=== PATIENT | female | born 1985 | race Caucasian/White ===

== ENCOUNTER 2019-10-14 06:05 | Emergency (ER) | payer MEDICAID, SELFPAY ==
[2019-10-14 06:12] VITALS: BP 155/103; PULSE 108; RESP 18; TEMP 36.8; O2SAT 98; BMI 18.3
--- NOTE | 2019-10-14 06:22 | W.ED.ANXIETY ---
HPI - Anxiety General: Chief Complaint: Anxiety Stated Complaint: WANT TO GO TO NPU Time Seen by Provider: 10/14/19 06:22 History of Present Illness: HPI narrative: 34-year-old female presents emergency room with complaint of anxiety. She has some relationship issues causing her to have severe anxiety. She denies suicidal homicidal ideation. She reports her and her boyfriend broke up that is what precipitated this. She was admitted for suicidal ideation in April 2019. She denies any suicidal thoughts at this time. She is very distraught because her boyfriend kicked her out of the house and she says she does not really have anywhere to go. Associated symptoms: Deny chest pain, chills, fever(s), malaise, nausea or vomiting Review of Systems Const: Denies: fever, chills, body aches, change in appetite, fatigue or malaise ENMT: Denies: throat pain, ear pain, nasal discharge or nasal congestion Card: Denies: chest pain, edema, shortness of breath on exertion or shortness of breath when lying down Resp: Denies: shortness of breath, productive cough or non-productive cough GI: Denies: abdominal pain, nausea, vomiting, vomiting blood, coffee grounds in vomit, diarrhea, constipation, bloating, blood in stool or black tarry stool : Denies: flank pain, difficulty urinating, painful urination, urinary frequency or urinary urgency Skin/Breast: Denies: rash or itching PFS ED PFSH: Social History Smoking and tobacco status: current every day smoker Physical Exam Const: COMMON NORMALS: no apparent distress GENERAL APPEARANCE: cooperative and comfortable ORIENTATION/CONSCIOUSNESS: Yes awake, Yes oriented to person, Yes oriented to place and Yes oriented to time HENMT: COMMON NORMALS: normocephalic, head/scalp atraumatic, hearing grossly normal bilaterally and external ears normal HEAD & SCALP: normocephalic and atraumatic EXTERNAL EAR: Yes external ears normal Eye: COMMON NORMALS: PERRL, EOMs intact bilaterally, conjunctivae normal and no scleral icterus CONJUNCTIVA: Yes conjunctivae normal PUPIL: Yes PERRL Neck/C-Spine: COMMON NORMALS: full ROM, no lymphadenopathy, supple and no JVD Lymph: LYMPHATIC: no lymphadenopathy noted and no lymphedema noted Resp: COMMON NORMALS: normal respiratory effort, no retractions, no use of accessory muscles and clear to auscultation bilaterally AUSCULTATION: clear to auscultation bilaterally Cardio: COMMON NORMALS: no JVD, regular rate, regular rhythm and no murmurs RATE: regular rate RHYTHM: regular rhythm GI: COMMON NORMALS: soft to palpation and no hepatosplenomegaly AUSCULTATION: Yes normoactive bowel sounds PALPATION: Yes soft, No tender, No guarding and Yes no hepatosplenomegaly Extremity: COMMON NORMALS: normal to inspection, normal capillary refill, no clubbing, cyanosis or edema, no calf tenderness and no pedal edema Neuro: SENSORIUM/ORIENTATION: Yes oriented to person, Yes oriented to place and Yes oriented to time Skin: COMMON NORMALS: no rashes or lesions noted GENERAL SKIN EXAM: no rashes or lesions noted Course Vital Signs: Vital signs: Vital Signs Temperature 98.3 F 10/14/19 06:12 Pulse Rate 108 H 10/14/19 09:55 Respiratory Rate 16 10/14/19 09:55 Blood Pressure 148/104 10/14/19 09:55 Pulse Oximetry 98 10/14/19 09:55 MDM - Anxiety MDM Narrative: Medical decision making narrative: Patient repeatedly denies any homicidal or suicidal ideation. We gave her's a dose of Ativan here in the emergency room that did help some where to go ahead and discharge her home early find no reason at this point that she would need to be admitted to the NPU. She does need assistance with A place to stay evidently her boyfriend is kicked her out Case management made some arrangements with an outside agency to help her get a ID so she could stay at a local [facility]. Discharge Plan Discharge Patient Disposition: Home, Self-Care Clinical Impression: Acute anxiety Condition: Stable Prescriptions: New Ativan 0.5 mg tablet 0.5 mg PO Q8H PRN (Reason: anxiety) Qty: 10 RF: 0 Discharge Orders: Discharge Order (Routine); Ordered 10/14/19 Ordered By: Brock Rubin Referrals[facility], [Staff Physician] - Discharge Diet: Usual diet Discharge Activity: Resume usual activity Discharge Date/Time: 10/14/19 09:55 Coding Level of Care Code ED Supermarket Manager for Chg Fwd Exam Comprehensive
[2019-10-14] MEDS: LORazepam 1 mg Tablet PO (06:40)
[2019-10-14] MEDS: acetaminophen 325 mg Tablet 650 MG PO (06:40)
[2019-10-14 07:03] VITALS: RESP 17
--- NOTE | 2019-10-14 07:35 | PC.NURSE ---
Pending D/C for case management consult.
[2019-10-14 08:00] VITALS: RESP 16
[2019-10-14 09:00] VITALS: RESP 16
[2019-10-14 09:55] VITALS: BP 148/104; PULSE 108; RESP 16; O2SAT 98
--- NOTE | 2019-10-14 14:46 | DCPLANNER ---
manager inventory control was asked to help patient find somewhere to go either [facility] or [facility]. manager inventory control called [facility], and patient spoke with Rylie from [facility]. Patient was not able to go to [facility], patient was given the name and a phone number to someone that would be able to help patient. manager inventory control was told by patient that when patient called the phone number was told that they would be able to help patient get an ID and would pick patient up at the ER when she was discharged. manager inventory control informed ED physician and patients nurse of this.
== END 2019-10-14 09:55 | disposition home or self-care (01) ==
PROVIDERS: Emergency Provider Family Medicine; Family Provider Family Medicine
DX: F41.9 Anxiety disorder, unspecified (principal); F17.210 Nicotine dependence, cigarettes, uncomplicated
CPT/HCPCS: 12345; 99281; 99283

== ENCOUNTER 2020-05-30 17:13 | Emergency (ER) | payer MEDICAID, SELFPAY ==
[2020-05-30 17:27] VITALS: BP 135/95; PULSE 114; RESP 18; TEMP 37.1; O2SAT 99; BMI 17.6
[2020-05-30 17:29] VITALS: BP 156/111; PULSE 115; RESP 20; O2SAT 98
--- NOTE | 2020-05-30 17:54 | W.ED.GENADLT ---
HPI - General Adult General: Chief complaint: General Medical Stated complaint: FEVER, SORE THROAT, H/A, DIFF SWALLOWING Time Seen by Provider: 05/30/20 17:46 History of Present Illness: HPI narrative: Patient woke up with fever body aches this morning and those have continued. She said having difficulty swallowing because her throat hurts so bad. No known Covid exposure denies any diarrhea loss of taste or smell. MD complaint: Sore throat body aches Onset (ago): hour(s) Associated symptoms: Reports no associated symptoms; Deny chest pain, dyspnea, headache(s), nausea, rash or vomiting Review of Systems Const: Denies: fever(s), chills or body aches Eyes: Denies: change in vision or blurry vision ENMT: Reports: throat pain, nasal congestion and other (Sinus pain) Card: Denies: chest pain or dyspnea on exertion Resp: Denies: dyspnea, productive cough or non-productive cough GI: Denies: abdominal pain, nausea or vomiting Musc: Reports: neck pain, back pain and joint pain; Denies: extremity pain Skin/Breast: Denies: rash Neuro: Denies: headache(s) Psych: Denies: anxiety or depression Ulysses/Lymph: Denies: easy bruising PFSH ED PFSH: Social History Smoking and tobacco status: current every day smoker Female Reproductive History: Date of last menstrual period: 05/16/20 Physical Exam Const: COMMON NORMALS: no acute distress, average body habitus and patient oriented x3 HENMT: COMMON NORMALS: normocephalic HEAD & SCALP: normal to inspection and normocephalic FACE & SINUS: normal facial exam THROAT: posterior oropharynx abnormal erythema Eye: COMMON NORMALS: conjunctivae normal GENERAL EYE: appearance normal, both eyes and all related structures CONJUNCTIVA: Yes conjunctivae normal Neck/C-Spine: COMMON NORMALS: no JVD Chest: COMMONS NORMALS: normal inspection of the chest Resp: COMMON NORMALS: normal respiratory effort and clear to auscultation bilaterally AUSCULTATION: clear to auscultation bilaterally Cardio: COMMON NORMALS: no JVD and regular rhythm RATE: tachycardic RHYTHM: regular rhythm GI: COMMON NORMALS: Normal to inspection, nondistended, normoactive bowel sounds present Extremity: COMMON NORMALS: normal to inspection and full ROM Neuro: COMMON NORMALS: patient oriented x3 Course Vital Signs: Vital signs: Vital Signs Temperature 98.7 F 05/30/20 17:27 Pulse Rate 114 H 05/30/20 17:27 Respiratory Rate 18 05/30/20 17:27 Blood Pressure 135/95 05/30/20 17:27 Pulse Oximetry 99 05/30/20 17:27 Discharge Plan Discharge Prescriptions: No Action Ativan 0.5 mg tablet 0.5 mg PO Q8H PRN (Reason: anxiety) Qty: 10 RF: 0 Coding Level of Care Code ED Clerical Order Filler for Chg Fwd Exam Comprehensive
[2020-05-30] MEDS: ibuprofen 600 mg Tablet PO (18:17)
[2020-05-30 18:22] VITALS: BP 156/111; PULSE 116; RESP 20; O2SAT 98
[2020-05-30] MEDS: dexamethasone 4 mg Tablet 10 MG PO (18:27)
[2020-05-30 18:54] LABS: Rapid Strep A Test Negative (Negative)
[2020-05-30 19:06] LABS: Influenza A by IFA Negative (Negative); Influenza B by IFA Negative (Negative); SARS Covid-2 Antigen Negative (Negative)
[2020-05-30 19:29] VITALS: BP 140/93; PULSE 96; O2SAT 100
== END 2020-05-30 19:31 | disposition home or self-care (01) ==
PROVIDERS: Emergency Provider Nurse Practitioner Family
DX: J02.9 Acute pharyngitis, unspecified (principal); F17.210 Nicotine dependence, cigarettes, uncomplicated
CPT/HCPCS: 12345; 87081; 87426; 87804; 87880; 99281; 99283; J8540

== ENCOUNTER 2020-06-19 04:28 | Inpatient (IN) | payer MEDICAID, SELFPAY ==
[2020-06-19] VITALS (7 sets, daily range): BP systolic 111–175; BP diastolic 78–109; PULSE 82–115; RESP 14–20; TEMP 36.8–37.1; O2SAT 96–98; BMI 18.3
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
[2020-06-19 05:42] LABS: Basophils # 0.1 10^3/uL (0.0-0.1); Basophils % 0.9 %; Eosinophils # 0.2 10^3/uL (0.0-0.8); Eosinophils % 1.1 %; Hemoglobin 13.2 g/dL (11.5-15.3); Lymphocytes # 1.9 10^3/uL (0.8-4.8); Lymphocytes % 12.6 %; Mean Corpuscular HGB Conc 32.2 g/dL (30.0-36.0); Mean Corpuscular Hemoglobin 29.8 pg (28.0-34.0); Mean Corpuscular Volume 92.6 fL (81-99); Mean Platelet Volume 9.5 fL (7.4-10.4); Monocytes # 0.7 10^3/uL (0.2-0.9); Monocytes % 4.4 %; Neutrophils # 12.24 10^3/uL (1.8-7.7); Neutrophils % 80.7 %; Nucleated Red Blood Cells % 0 %; Platelet Count 349 10^3/cmm (130-400); Red Blood Count 4.43 10^6/uL (4.1-5.3); Red Cell Distribution Width 12.5 % (12.1-15.1); White Blood Count 15.2 10^3/uL (4.0-10.0)
[2020-06-19] MEDS: LORazepam 2 mg Tablet PO (05:42)
[2020-06-19 05:46] LABS: HCG Qualitative Urine. Negative (Negative)
[2020-06-19 05:48] LABS: Acetaminophen < 5.0 ug/mL (10-30); Alanine Aminotransferase 25 U/L (0-33); Albumin Level 4.8 g/dL (3.5-5.2); Alcohol Level < 10 mg/dL (0-10); Alkaline Phosphatase 84 IU/L (35-105); Anion Gap 16.1 (5-19); Aspartate Amino Transferase 19 U/L (0-32); Blood Urea Nitrogen 11 mg/dL (6-20); Calcium 9.5 mg/dL (8.5-10.5); Carbon Dioxide 25 mmol/L (22-29); Chloride 101 mmol/L (98-107); Globulin 3.1 g/dL (1.3-4.6); Glomerular Filtration Rate 94.7 mL/min (90-130); Glucose 97 mg/dL (65-115); Osmolality Calculated 285 mOsm/kg (285-295); Potassium 4.1 mmol/L (3.5-5.1); Salicylate < 0.3 mg/dL (3-10); Sodium 138 mmol/L (136-145); Total Bilirubin 0.3 mg/dL (0.15-1.2); Total Protein 7.9 g/dL (6.6-8.7)
[2020-06-19 06:04] LABS: Amphetamines Screen Urine Positive (Negative); Barbiturates Screen Urine Negative (Negative); Benzodiazepines Screen Urine Negative (Negative); Cocaine Screen Urine Negative (Negative); Opiate Screen Urine Negative (Negative); PCP Screen Urine Negative (Negative); THC Screen Urine Positive (Negative)
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
--- NOTE | 2020-06-19 15:11 | PC.RESP ---
SMOKING CESSATION INFORMATION SENT TO PATIENT.
--- NOTE | 2020-06-19 21:48 | PC.NURSE ---
PM assessment Pt denies pain, denies AH/VH, Denies SI/HI. She requested to sleep. All vitals are normal, lung/heart sounds are normal. Pt denies anxiety at this time .
--- NOTE | 2020-06-19 23:00 | PC.NURSE ---
Skin assessment completed at 0620 today revealed no wounds or injuries.
[2020-06-20 06:00] VITALS: BP 114/81; PULSE 62; RESP 15; TEMP 37.3; O2SAT 98
--- NOTE | 2020-06-20 11:34 | PM.NPN ---
Subjective NPU Subjective: Interval history: Marizol presents today continuing to be quite tearful and expressing uncertainty about what possibilities exist for her to move forward without her significant other. We discussed recovery oriented treatment as well as appropriate follow-up her mental health concerns. We discussed the risk benefits and alternatives of initiating Lexapro which had reportedly been successful in the past and she understood and agreed to proceed as is documented in this note. Mental Status Exam MSE Comments: This is a underweight near cachectic white female in hospital scrubs with limited grooming and eye contact. No abnormal movements except for psychomotor agitation. Cooperative with exam and moderate to extreme distress. Speech was normal rate and volume. Mood described as depressed/I do not know what to do, affect congruent and tearful. Thought process organized. Thought content: Patient endorsed suicidal ideation but denied homicidal ideation, there were no delusions reported or noted, she denied any auditory or visual hallucinations. Attention and concentration were intact and memory appeared limited but reliable but none were formally tested. She is alert and oriented x3. Insight and judgment are impaired, impulse control is impaired. Vitals/I&O/Wt Last Vital Signs Temp 99.2 F 06/20/20 06:00 Pulse 62 06/20/20 06:00 Resp 15 06/20/20 06:00 BP 114/81 06/20/20 06:00 Pulse Ox 98 06/20/20 06:00 Weight last 48 hrs Weight 45.359 kg Data NPU : 06/19/20 05:13 06/19/20 05:13 A&P Additional A&P Information (1) Partner relational problem: (2) Methamphetamine abuse: (3) Withdrawal from methamphetamine: (4) Suicidal thoughts: (5) Cannabis abuse: This is a 35-year-old white female with a long history of addiction and mental health issues who presents with conflict with her significant other and uncertainty as to where their relationship is going to go. 1. Continue current medication. We will start Lexapro 10 mg p.o. every morning 2. Continue every 15 minute checks for safety. 3. Encourage individual, group and milieu therapy. 4. Encourage sober living treatment after discharge at the highest level of care to which she is willing to commit. Involuntary Hold Information 96 Hour Hold: 96 Hour Involuntary Admission: No Attestations NPU Medical Necessity Statement*: Inpatient hospitalization is medically necessary and the clinically appropriate intervention at this time. We will monitor medications and make changes as indicated. Likely length of stay 2 to 4 days. Coding Level of Care Code Acute Master Lay Out Specialist for Ermelinda Lopez
[2020-06-20 14:00] VITALS: BP 138/79; PULSE 120; RESP 18; TEMP 36.8
[2020-06-20] MEDS: escitalopram 10 mg Tablet PO (15:26)
[2020-06-20 20:09] VITALS: BP 114/57; PULSE 93; RESP 17; TEMP 37.1; O2SAT 98
--- NOTE | 2020-06-20 21:23 | PC.NURSE ---
PM assessment V/S are WNL, Heart/Lung Sounds are normal, Pt denies HI/SI. PT DENIES AH/VH AT THIS TIME. PT STATES THAT SHE HAS BEEN TEARFUL, ANXIOUS, AND CRYING ALL DAY. SHE HAS ISOLATED HER SELF AND STAYED IN HER ROOM ALL DAY. SHE IS LAYING IN HER BED AT THIS TIME. HER APPEARANCE IS DISHEVELED. PT STATED THAT SHE IS HOMELESS AND THAT SHE HAS BEEN USING DRUGS. PT STATES, MY LIFE IS FALLING APART. WILL CONTINUE TO MONITOR PT CONDITION
[2020-06-21 05:46] VITALS: BMI 20.1
[2020-06-21 06:00] VITALS: BP 118/78; PULSE 73; RESP 15; TEMP 37.4; O2SAT 99
[2020-06-21] MEDS: escitalopram 10 mg Tablet PO (08:42)
[2020-06-21 14:00] VITALS: BP 118/73; PULSE 95; RESP 16; TEMP 37.5; O2SAT 101
--- NOTE | 2020-06-21 18:24 | P.PN_ITS ---
Subjective NPU Subjective: Interval history: Marizol presents today reporting that she is feeling a little better. She still is quite sad as she is not been contacted by her significant other and she does not know his number to contact him. She has seemed to start considering what possibilities exist for starting an alternate situation. It continues to be tough for her to imagine because reportedly this is the only relationship she has ever known. She denies any side effects to the Lexapro reports that she is starting to eat better and is sleeping okay. Mental Status Exam MSE Comments: This is a underweight near cachectic white female in hospital scrubs with limited grooming and eye contact. No abnormal movements except for mild psychomotor retardation. Cooperative with exam in mild distress. Speech was normal rate and volume. Mood described as a little bit better, affect congruent and less tearful. Thought process organized. Thought content: Patient denied current suicidal or homicidal ideation, there were no delusions reported or noted, she denied any auditory or visual hallucinations. Attention and concentration were intact and memory appeared limited but reliable but none were formally tested. She is alert and oriented x3. Insight and judgment are limited, but improving, impulse control is impaired. Vitals/I&O/Wt Last Vital Signs Temp 98.3 F 06/21/20 19:46 Pulse 85 06/21/20 19:46 Resp 18 06/21/20 19:46 BP 112/75 06/21/20 19:46 Pulse Ox 98 06/21/20 19:46 Weight last 48 hrs Weight 49.895 kg Data NPU : 06/19/20 05:13 06/19/20 05:13 A&P Additional A&P Information (1) Partner relational problem: (2) Methamphetamine abuse: (3) Withdrawal from methamphetamine: (4) Suicidal thoughts: (5) Cannabis abuse: This is a 35-year-old white female with a long history of addiction and mental health issues who presents with conflict with her significant other and uncertainty as to where their relationship is going to go. 1. Continue current medication. 2. Continue every 15 minute checks for safety. 3. Encourage individual, group and milieu therapy. 4. Encourage sober living treatment after discharge at the highest level of care to which she is willing to commit. Involuntary Hold Information 96 Hour Hold: 96 Hour Involuntary Admission: No Attestations NPU Medical Necessity Statement*: Inpatient hospitalization is medically necessary and the clinically appropriate intervention at this time. We will monitor medications and make changes as indicated. Likely length of stay 1-3 days. Coding Level of Care Code Acute Vest Front Presser for Ermelinda Lopez
[2020-06-21 19:46] VITALS: BP 112/75; PULSE 85; RESP 18; TEMP 36.8; O2SAT 98
[2020-06-21] MEDS: hyDROXYzine 25 mg Capsule 50 MG PO (20:39)
[2020-06-21] MEDS: trazodone 50 mg Tablet PO (20:40)
[2020-06-22 06:00] VITALS: BP 118/78; PULSE 83; RESP 18; TEMP 37.2; O2SAT 96
[2020-06-22] MEDS: escitalopram 10 mg Tablet PO (07:38)
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
[2020-06-22 12:54] VITALS: BP 118/78; PULSE 83; RESP 18; TEMP 37.2; O2SAT 96
== END 2020-06-22 14:05 | disposition home or self-care (01) | DRG 897 ==
LOC: ER 05:21 → NP 05:44
PROVIDERS: Admitting Provider Psychiatry & Neurology Psychiatry; Emergency Provider Emergency Medicine; Visit Provider Psychiatry & Neurology Psychiatry
DX: F15.13 Other stimulant abuse with withdrawal (principal); R45.851 Suicidal ideations; Z63.0 Problems in relationship with spouse or partner; Z81.8 Family history of other mental and behavioral disorders; F12.10 Cannabis abuse, uncomplicated
CPT/HCPCS: 12345; 80053; 80306; 80307; 81025; 85025; 99284